=== PATIENT | male | born 1960 | race Caucasian/White ===

== ENCOUNTER 2016-08-20 16:17 | Observation (INO) | payer OTHER ==
--- NOTE | ~2016-08-20 | EKG ---
PATIENT: LORY DIAZ UNIT #: [id number] Ventricular Rate: 73 BPM Atrial Rate: 138 BPM QRS Duration: 98 ms Q-T Interval: 386 ms QTC Calculation(Bezet): 425 ms Calculated R [place]: 40 degrees Calculated T [place]: 40 degrees Diagnosis Line: Atrial fibrillation Diagnosis Line: Abnormal ECG Diagnosis Line: When compared with ECG of 20-AUG-2016 16:11, Diagnosis Line: Nonspecific T wave abnormality has replaced Diagnosis Line: inverted T waves in Inferior leads Diagnosis Line: Confirmed by NANY MAST MD ([id number]) on Diagnosis Line: 08/22/2016 7:18:16 AM INTERPRETING MD: TOYIN
--- NOTE | ~2016-08-20 | CR72 ---
[facility] A Service of [facility] RADIOLOGY TEXT RESULTS PATIENT: LORY DIAZ LOCATION: [facility] : 60 UNIT #: [id number] AGE: [address]: Angie Aviles MD SEX: M ORDER DR: [id number] [facility]. [place], [place] [address] [id number] I MR#: [id number] Acc #: [id number] NAME: LORY DIAZ : 1960 SEX: M STUDY DATE/TIME: 08/20/2016 16:36 UNIT: [facility] ROOM: [facility] STUDY DESCRIPTION: CR Chest Single View Portable Attending Physician: Angie Aviles M.D. Ordering Physician: Jonny Swartz D.O. Primary Care Physician: No Primary Care Physician MEDICAL IMAGING REPORT This report is preliminary unless electronic signature is present EXAMINATION AP portable chest. DATE 08/20/2016 HISTORY 55-year-old male with syncope and weakness today. History of bronchitis. Hypertension. COMPARISON AP portable chest, 07/02/2013. FINDINGS No acute airspace disease. Benign calcified granulomatous changes are seen in each hilar region. The heart size is upper limits normal but stable. Pulmonary vascular is normal. No pleural effusion or pneumothorax identified. IMPRESSION No acute chest findings. No significant change compared to 07/02/2013. Dictated by... Juju Soto M.D. THIS IS AN ELECTRONICALLY VERIFIED REPORT Juju Soto M.D. at 08/21/2016 10:40 AM DAYA/robinson TD: 08/20/2016 22:14 JOB #: [id number] [facility] A Service [facility] RADIOLOGY TEXT RESULTS PATIENT: LORY DIAZ LOCATION: [facility] : 60 UNIT #: [id number] AGE: [address]: Angie Aviles MD SEX: M ORDER DR: MEDICAL IMAGING REPORT Page 1 of 1 COPY
--- NOTE | ~2016-08-20 | HP ---
Unit #: [id number] #: [id number] Patient: LORY DIAZ [id number] [facility]. [place], [place] [address] [id number] I MR#: [id number] NAME: LORY DIAZ. ROOM: 570 Age: 55 Sex: M Admission Date: 08/20/2016 : 1960 Attending Physician: Angie Aviles M.D. Primary Care Physician: Primary Care Physician No HISTORY AND PHYSICAL HISTORY OF PRESENT ILLNESS This is a 55-year-old white male new to our group with a past medical history of hypertension, GERD, and tobacco abuse. The patient was previously admitted to [facility] in May 2013 for small ischemic cerebrovascular accident. He was placed on an aspirin and statin and was managed medically. A 2D echocardiogram was obtained and revealed a normal ejection fraction with mild LVH. There was normal valvular function. The patient denies hyperlipidemia, diabetes mellitus, or myocardial infarction. There are no reports of previous stress tests or cardiac catheterizations. Risk factors for ischemic heart disease include hypertension and tobacco abuse. The patient presented to the hospital with complaints of syncope. He states that around 2 p.m. he went to a bar to get a beer. He remembers looking out at the street and his vision was kind of fuzzy and he felt lightheaded. The next thing he remembers, he was on the ground. He reportedly lost consciousness for a couple minutes. He denies previous episodes of syncope. There are no reports of chest pain. He has had some shortness of breath but no PND or orthopnea. He does admit to some lower extremity edema, as well as some palpitations. He did not lose bladder control. There was some question of witnessed tremors but this cannot be confirmed. EMS was dispatched and the patient was found to have a heart rate in the 180s. Blood pressure was borderline low in the 90s. Telemetry revealed atrial fibrillation with RVR which is a new diagnosis. The patient denies a history of any arrhythmias to his knowledge. PAST MEDICAL HISTORY 1. Previous admission to [facility] in May 2013 for a small ischemic cerebrovascular accident. 2. Hypertension. 3. GERD. 4. Renal calculi. 5. Active tobacco abuse. 6. Marijuana use. 7. Alcohol abuse with one pint per day. PAST SURGICAL HISTORY Finger surgery. HOME MEDICATIONS 1. Norvasc 10 mg p.o. daily. 2. Toprol tartrate 25 mg p.o. daily. 3. Cozaar 25 mg p.o. daily. Unit #: [id number] #: [id number] Patient: LORY DIAZ ALLERGIES Oxycodone. SOCIAL HISTORY The patient is an active smoker. He smokes a pack of cigarettes per day. He admits to drinking a pint of alcohol per day and has been drinking the last couple of years since his divorce. He does have a history of marijuana use. He works but is sedentary and does not exercise. FAMILY HISTORY Significant for hypertension. REVIEW OF SYSTEMS Ten-point review of systems negative except for details as noted above in HPI. PHYSICAL EXAMINATION VITAL SIGNS: Temperature 98.7, pulse 76, blood pressure 116/79. GENERAL: This is a 55-year-old white male in no acute distress. SKIN: Warm and dry. NECK: Supple. No jugular vein distention. No hepatojugular reflux. Normal carotid upstrokes. No carotid bruits auscultated. HEART: S1, S2. Irregularly irregular. No murmurs, rubs, or gallops. LUNGS: Bilateral breath sounds have good air entry throughout all lung mosquera. Respirations even and unlabored. No rales, rhonchi, or wheezes. ABDOMEN: Soft, nontender, nondistended. Positive bowel sounds auscultated times four quadrants. No ascites noted. EXTREMITIES: Bilateral lower extremities have no pretibial pitting edema. DP and PT pulses are 2+. Capillary refill is less than 2 seconds. DIAGNOSTIC STUDIES LABORATORY: White blood cell count 8.3, hemoglobin 14.5, hematocrit 43.8, platelets 198. Sodium 133, potassium 3.5, chloride 102, CO2 is 21, BUN 21, creatinine 1.2, glucose 226, AST 33, ALT 57, alkaline phosphatase 75. Troponin 0.03. INR 1. IMAGING: Chest x-ray reveals no acute findings. CARDIOVASCULAR: EKG reveals atrial fibrillation with rapid ventricular response of 102 beats per minute. T-wave inversion noted in the inferior leads. IMPRESSION 1. Syncope. 2. Mild hypotension. 3. Atrial fibrillation with rapid ventricular response, newly diagnosed, age indeterminate. 4. History of cerebrovascular accident May 2013. 5. Hypertension. 6. Gastroesophageal reflux disease. 7. Active tobacco abuse. 8. History of marijuana abuse. 9. Active alcohol abuse. PLAN 1. The patient presented to the hospital with complaints of syncope. He was admitted for atrial fibrillation with rapid ventricular response and borderline hypotension. Unit #: [id number] #: [id number] Patient: LORY DIAZ 2. His Norvasc and Cozaar have been discontinued. He has been placed on adjusted beta marzena for heart rate control. 3. Fasting lipid profile, TSH and 2D echocardiogram have been ordered. 4. The patient has been placed on Eliquis due to a CHADS-2 VASc of 3. The case resolution specialist will be asked to check the cost. 5. The patient has been recommended to refrain from alcohol and tobacco abuse. 6. He has been placed on alcohol withdrawal protocol until discharge. Dictated by Carmencita Watkins APRN for Valeri Liu TD: 08/21/2016 21:59 JOB #: [id number] HISTORY AND PHYSICAL Page 1 of 1 X X HISTORY AND PHYSICAL
--- NOTE | ~2016-08-20 | EKG ---
PATIENT: LORY DIAZ UNIT #: [id number] Ventricular Rate: 102 BPM Atrial Rate: 178 BPM QRS Duration: 88 ms Q-T Interval: 356 ms QTC Calculation(Bezet): 463 ms Calculated R [place]: 43 degrees Calculated T [place]: 8 degrees Diagnosis Line: Atrial fibrillation with rapid ventricular Diagnosis Line: response Diagnosis Line: Nonspecific ST and T wave abnormality Diagnosis Line: Abnormal ECG Diagnosis Line: Change from prior tracing, rhythm now atrial Diagnosis Line: fibrillation Diagnosis Line: Confirmed by NANY MAST MD ([id number]) on Diagnosis Line: 08/20/2016 10:49:10 PM INTERPRETING MD: TOYIN
[~2016-08-20 16:17] MED LIST: AMLODIPINE BESY10 MG PO; ASPIRIN EC81 M1 PO; ASPIRIN81 M2 PO; CENTRUM SILVER PO; COZAAR PO; METOPROLOL TAR25 MG PO; METOPROLOL TART25 MG PO; NORVASC PO; PRILOSEC PO; SIMVASTATIN10 MG PO; ZOCOR PO
[2016-08-20] MEDS ORDERED: PATIENT'S PHARMACY (16:32)
[2016-08-20] MEDS ORDERED: LOPRESSOR PO (16:33)
[2016-08-20] MEDS ORDERED: NORVASC10 MG PO (16:33)
[2016-08-20] MEDS ORDERED: COZAAR25 MG PO (16:33)
[2016-08-20 16:40] LABS: BASOPHIL# 0.1 X10e3 (0-0.3); BASOPHIL% 1.7 % (0-2.5); EOSINOPHIL# 0.1 X10e3 (0-0.7); EOSINOPHIL% 1.4 % (0.0-7.0); HEMATOCRIT 43.8 % (38.0-50.0); HEMOGLOBIN 14.5 gm/dL (13.0-16.0); LYMPHOCYTE# 1.3 X10e3 (1.0-3.5); LYMPHOCYTE% 15.4 % (17.0-45.0); MEAN CELL VOLUME 98.5 FL (83-96); MEAN CORPUSCULAR HEMOGLOBIN 32.6 PG (28-34); MEAN CORPUSCULAR HGB CONC 33.1 g/dL (30-36); MEAN PLATELET VOLUME 9.5 FL (6.5-11.5); MONOCYTE# 0.5 X10e3 (0-1.0); MONOCYTE% 5.7 % (3.0-12.0); NEUTROPHIL# 6.3 X10e3 (1.5-7.1); NEUTROPHIL% 75.8 % (40-75); PLATELET COUNT 198 X10e3 (140-420); RED BLOOD COUNT 4.45 X10e (3.90-5.60); RED CELL DISTRIBUTION WIDTH 14.8 % (11.0-15.5); WHITE BLOOD COUNT 8.3 X10e3 (4.0-10.5)
[2016-08-20 16:46] LABS: DIFF IND NO
[2016-08-20 16:51] LABS: POC - CKMB 1.1 ng/mL (0.0-7.9); POC - TROPONIN <0.05 ng/mL (<=0.05)
[2016-08-20 16:53] LABS: PARTIAL THROMBOPLASTIN TIME 21.8 SECONDS (23.5-31.3); PROTHROMBIN TIME (PATIENT) 10.4 SECONDS (10.0-11.7)
[2016-08-20 17:09] LABS: BILIRUBIN, DIRECT 0.1 mg/dL (0.0-0.2); BILIRUBIN,INDIRECT 0.3 mg/dL (0.0-0.9); BILIRUBIN,TOTAL 0.4 mg/dL (0.2-2.0); BUN/CREATININE RATIO 17.5; CALCIUM SERUM 8.7 mg/dL (8.4-10.2); CREATININE SERUM 1.2 mg/dL (0.6-1.4); GLOM FILT RATE Estimated 67.7 mL/min (>60); MAGNESIUM 1.7 mg/dL (1.6-3.0); POTASSIUM 3.5 mmol/L (3.5-5.1); PROTEIN TOTAL SERUM 6.9 g/dL (6.0-8.3)
[2016-08-21 00:11] LABS: %MB 1.9 % (0.0-4.0); MB 2.3 ng/ml
[2016-08-21 06:27] LABS: BASOPHIL# 0.1 X10e3 (0-0.3); BASOPHIL% 0.9 % (0-2.5); EOSINOPHIL# 0.3 X10e3 (0-0.7); EOSINOPHIL% 3.2 % (0.0-7.0); HEMATOCRIT 46.6 % (38.0-50.0); HEMOGLOBIN 15.3 gm/dL (13.0-16.0); LYMPHOCYTE# 2.4 X10e3 (1.0-3.5); LYMPHOCYTE% 26.5 % (17.0-45.0); MEAN CELL VOLUME 98.4 FL (83-96); MEAN CORPUSCULAR HEMOGLOBIN 32.3 PG (28-34); MEAN CORPUSCULAR HGB CONC 32.8 g/dL (30-36); MEAN PLATELET VOLUME 9.7 FL (6.5-11.5); MONOCYTE# 0.9 X10e3 (0-1.0); MONOCYTE% 9.8 % (3.0-12.0); NEUTROPHIL# 5.4 X10e3 (1.5-7.1); NEUTROPHIL% 59.6 % (40-75); PLATELET COUNT 207 X10e3 (140-420); RED BLOOD COUNT 4.73 X10e (3.90-5.60); RED CELL DISTRIBUTION WIDTH 14.5 % (11.0-15.5); WHITE BLOOD COUNT 9.1 X10e3 (4.0-10.5)
[2016-08-21 06:31] LABS: DIFF IND NO
[2016-08-21 07:19] LABS: BUN/CREATININE RATIO 21.25; CALCIUM SERUM 8.7 mg/dL (8.4-10.2); CREATININE SERUM 0.8 mg/dL (0.6-1.4); GLOM FILT RATE Estimated 100.6 mL/min (>60); POTASSIUM 4.4 mmol/L (3.5-5.1)
[2016-08-21] MEDS ORDERED: ELIQUIS5 MG PO (18:24)
[2016-08-21] MEDS ORDERED: LOPRESSOR PO (18:26)
[2016-08-21] MEDS ORDERED: NICOTINE TRANSD14 MG TOP (18:26)
[2016-08-21] MEDS ORDERED: MULTI VITAMIN1 EACH PO (18:28)
[2016-08-21] MEDS ORDERED: BAYER CHEWABLE81 MG PO (18:29)
[2016-08-21] MEDS ORDERED: B-1100 MG PO (18:30)
== END 2016-08-21 18:45 | disposition home or self-care (01) ==
LOC: CED 16:17 → CEDOF 17:51 → C5C 17:51
PROVIDERS: Emergency Medicine; Internal Medicine Cardiovascular Disease
DX: R55 Syncope and collapse (principal); I48.91 Unspecified atrial fibrillation; Z86.73 Personal history of transient ischemic attack (TIA), and cerebral infarction without residual deficits; I10 Essential (primary) hypertension; K21.9 Gastro-esophageal reflux disease without esophagitis; F17.210 Nicotine dependence, cigarettes, uncomplicated; F10.10 Alcohol abuse, uncomplicated; I08.8 Other rheumatic multiple valve diseases; Z82.49 Family history of ischemic heart disease and other diseases of the circulatory system
CPT/HCPCS: 71010; 80048; 80061; 80076; 82550; 82553; 83735; 84443; 84484; 85025; 85610; 85730; 93005; 93306; 94760; 99285; G0378; J3411; J7042

== ENCOUNTER 2016-09-06 07:58 | Emergency (ER) | payer OTHER ==
--- NOTE | ~2016-09-06 | CR63 ---
[facility] A Service of [facility] RADIOLOGY TEXT RESULTS PATIENT: LORY DIAZ LOCATION: [facility] : 60 UNIT #: [id number] AGE: [address]: Bren Worrell APRN SEX: M ORDER DR: [id number] [facility] [address] [place], [place] [address] [id number] MR#: [id number] Acc #: [id number] NAME: LORY DIAZ. : 1960 SEX: M STUDY DATE/TIME: 09/06/2016 8:26 UNIT: [facility] ROOM: STUDY DESCRIPTION: CR Chest 2 View Attending Physician: Bren Worrell A.P.R.N. Ordering Physician: Ed Doctor [id number] [facility] Primary Care Physician: Primary Care Physician No MEDICAL IMAGING REPORT This report is preliminary unless electronic signature is present EXAM Chest, 09/06/2016, [facility]. HISTORY 55-year-old male patient right side chest pain. Pain lower chest wall. Patient fell out of bed today. 40-year smoking history. COMPARISON Portable chest, 08/20/2016. FINDINGS Two-view chest demonstrates mild stable cardiac enlargement. Hilar structures and mediastinal contours are preserved. Bilateral lungs are clear. I see no displaced rib fracture. Costophrenic angles are preserved. IMPRESSION Mild stable cardiac enlargement. No acute chest finding. Dictated by... Saúl Martino M.D. THIS IS AN ELECTRONICALLY VERIFIED REPORT Saúl Martnio M.D. at 09/13/2016 7:11 AM MARIBEL/shruthi TD: 09/06/2016 10:44 JOB #: [id number] MEDICAL IMAGING REPORT Page 1 of 1 COPY
[~2016-09-06 07:58] MED LIST changes: +B-1100 MG PO; +BAYER CHEWABLE81 MG PO; +COZAAR25 MG PO; +ELIQUIS5 MG PO; +LOPRESSOR PO; +MULTI VITAMIN1 EACH PO; +NICOTINE TRANSD14 MG TOP; +NORVASC10 MG PO; +PATIENT'S PHARMACY
== END 2016-09-06 09:15 | disposition home or self-care (01) ==
LOC: CED 07:58
DX: S20.211A Contusion of right front wall of thorax, initial encounter (principal); I10 Essential (primary) hypertension; Z86.73 Personal history of transient ischemic attack (TIA), and cerebral infarction without residual deficits; Z87.442 Personal history of urinary calculi; F10.20 Alcohol dependence, uncomplicated; W20.8XXA Other cause of strike by thrown, projected or falling object, initial encounter; Y92.009 Unspecified place in unspecified non-institutional (private) residence as the place of occurrence of the external cause; F17.210 Nicotine dependence, cigarettes, uncomplicated; Z88.5 Allergy status to narcotic agent
CPT/HCPCS: 71020; 99283